=== PATIENT | male | born 1975 ===

== ENCOUNTER 2021-08-21 15:39 | Emergency (ER) | payer MEDICAID, SELFPAY | END 2021-08-21 17:33 | disposition left against medical advice (07) | LOC: HO.ED 17:33 | PROVIDERS: Emergency Provider Emergency Medicine | DX: F41.9 Anxiety disorder, unspecified (principal) ==

== ENCOUNTER 2022-02-11 09:02 | Emergency (ER) | payer OTHER, SELFPAY ==
[2022-02-11 09:10] VITALS: PULSE 100; O2SAT 98
--- NOTE | 2022-02-11 09:11 | PC.NURSE ---
After arriving to ED on stretcher pt making inappropriate comment to staff and noted to be yelling, instructed that yelling is not apprpriate in this environment, pt suddenly became threatening, gesturing to fight. Security to bedside. Pt yelling and swearing calling staff gali Mckeon to pt, pt assisted out of facility. Refuses treatment
--- NOTE | 2022-02-11 09:40 | ED.OVERDOSE ---
HPI - Overdose General Stated Complaint: HEROIN OVERDOSE,NARCAN GIVEN W/GOOD RESULT Source: EMS Mode of arrival: EMS Limitations: other (Verbally assaultive) History of Present Illness HPI Narrative: 46-year-old male who was brought to the emergency department for evaluation of unintentional overdose, he received Narcan 12 mg intranasally with good response. As soon as the patient was brought into a room he began yelling, he was being extremely aggressive, he was swinging his arms and threatening to fight everybody in the emergency department. He was specially aggressive towards the female staff. The patient insisted on leaving in stated that he did not want any help and that he would not let anybody examine him. Security was called and the patient was escorted out of the emergency department. PMFSH Social History Social History Advance Directives: No Discharge Plan Discharge Clinical Impression: Accidental overdose of non-opiate analgesics, Aggressive behavior Patient Disposition: Elopement Discharge Date/Time: 02/11/22 09:29
== END 2022-02-11 09:29 | disposition left against medical advice (07) ==
LOC: HO.ED 09:18
PROVIDERS: Emergency Provider Emergency Medicine Emergency Medical Services
DX: T40.1X1A Poisoning by heroin, accidental (unintentional), initial encounter (principal); Y92.9 Unspecified place or not applicable; F91.9 Conduct disorder, unspecified